=== PATIENT | female | born 1990 | race Caucasian/White ===

== ENCOUNTER 2021-04-10 05:50 | Inpatient (IN) | payer BC ==
[2021-04-10] MEDS ORDERED: Ondansetron 4 MG/2 ML SDV IVPUSH PRN (06:21)
[2021-04-10] MEDS ORDERED: Sodium Chloride 0.9% 10 ML Syringe FLUSH PRN (06:21)
[2021-04-10] MEDS ORDERED: Nalbuphine 10 MG/1 ML Vial IVPUSH PRN (06:21)
[2021-04-10] MEDS ORDERED: Lidocaine 1% 50 ML MDV INJECT ONE (06:21)
[2021-04-10] MEDS ORDERED: Oxytocin/Lactated Ringers 10 UNIT/1,000 ML BAG IV SCH (06:30)
[2021-04-10] MEDS: Labetalol 100 MG Tab PO SCH ×2 (09:37→19:59)
[2021-04-10] MEDS: Lactated Ringers 1,000 ML IV SCH ×4 (11:16→23:40)
[2021-04-10] MEDS: Sodium Chloride 0.9% 10 ML Syringe FLUSH SCH ×2 (11:44→22:08)
[2021-04-10] MEDS: Oxytocin/Lactated Ringers 10 UNIT/1,000 ML BAG IV SCH (12:03)
[2021-04-10] MEDS ORDERED: ePHEDrine 50 MG/ML SDV IVPUSH PRN (12:30)
[2021-04-10] MEDS ORDERED: diphenhydrAMINE 50 MG/ML SDV IVPUSH PRN (12:30)
[2021-04-10] MEDS: fentaNYL 100 MCG/2 ML SDV EPIDUR PRN ×2 (13:51→21:30)
[2021-04-10] MEDS: Bupivacaine/fentaNYL/NS 100 ML Bag EPIDUR PRN ×2 (13:51→20:51)
[2021-04-10] MEDS ORDERED: Lidocaine 2% with EPINEPHrine 1:200,000 20 ML SDV ONE (15:05)
[2021-04-10] MEDS ORDERED: Labetalol 100 MG Tab PO PRN (19:56)
[2021-04-10] MEDS ORDERED: Dexmedetomidine 200 MCG/2 ML SDV ONE (21:21)
[2021-04-11] MEDS ORDERED: Docusate Sodium 100 MG Cap PO PRN (03:16)
[2021-04-11] MEDS ORDERED: Benzocaine/Menthol 20%-0.5% Spray 78 GM Cannister TOP PRN (03:16)
[2021-04-11] MEDS ORDERED: Acetaminophen 325 MG Tab PO PRN (03:16)
[2021-04-11] MEDS: Oxytocin/Lactated Ringers 10 UNIT/1,000 ML BAG IV SCH (03:45)
[2021-04-11] MEDS: Ibuprofen 600 MG Tab PO PRN ×3 (04:19→19:55)
[2021-04-11] MEDS: Witch Hazel Medicated Pads 40/Jar TOP PRN (04:19)
[2021-04-11] MEDS: Prenatal Multivitamin with Calcium/Folic Acid/Iron Tab PO SCH (10:03)
[2021-04-12] MEDS: Ibuprofen 600 MG Tab PO PRN ×2 (03:28→09:45)
[2021-04-12] MEDS: Prenatal Multivitamin with Calcium/Folic Acid/Iron Tab PO SCH (09:44)
[2021-04-12] MEDS: Labetalol 100 MG Tab PO SCH ×2 (12:17→21:41)
[2021-04-13] MEDS: Ibuprofen 600 MG Tab PO PRN (03:08)
[2021-04-13] MEDS: Witch Hazel Medicated Pads 40/Jar TOP PRN (08:50)
[2021-04-13] MEDS ORDERED: Labetalol 100 MG Tab PO SCH (09:00)
== END 2021-04-13 12:55 | disposition home or self-care (01) | DRG 560 ==
LOC: JD.OBCHECK 05:50 → JD.OB 05:56 → JD.OBCHECK 06:22 → JD.OB 04-11 02:50 → OBSVTOIN 04-11 03:13
PROVIDERS: ADMIT Obstetrics & Gynecology; ATTEND Obstetrics & Gynecology
PROC: 10E0XZZ Delivery of Products of Conception, External Approach (ICD-10-PCS; principal; 2021-04-11)
PROC: 10907ZC Drainage of Amniotic Fluid, Therapeutic from Products of Conception, Via Natural or Artificial Opening (ICD-10-PCS; 2021-04-11)
PROC: 0KQM0ZZ Repair Perineum Muscle, Open Approach (ICD-10-PCS; 2021-04-11)
DX: O77.0 Labor and delivery complicated by meconium in amniotic fluid (principal); Z37.0 Single live birth; O70.1 Second degree perineal laceration during delivery; Z20.822 Contact with and (suspected) exposure to COVID-19; Z3A.39 39 weeks gestation of pregnancy
CPT/HCPCS: 01967; 36415; 51702; 59025; 59409; 80053; 82565; 82570; 83615; 84156; 84450; 84460; 84520; 84550; 85025; 85027; 86592; A9270-GY; J2590; J3010; J7120; U0002

== ENCOUNTER 2024-11-05 12:34 | Inpatient (IN) | payer BC ==
[2024-11-05] MEDS ORDERED: Nalbuphine 10 MG/1 ML Vial IVPUSH PRN (12:39)
[2024-11-05] MEDS ORDERED: Ondansetron 4 MG/2 ML SDV IVPUSH PRN (12:39)
[2024-11-05] MEDS ORDERED: Oxytocin/0.9 % Sodium Chloride 30 UNIT/500 ML BAG IV SCH ×2 (12:45)
[2024-11-05] MEDS ORDERED: Lactated Ringers 1,000 ML IV SCH (12:45)
[2024-11-05] MEDS ORDERED: Oxytocin 10 Units/1 ML SDV ONE (12:59)
[2024-11-05 13:02] LABS: BASOPHILS ABSOLUTE AUTO 0.0 K/mm3 (0.0-0.2); BASOPHILS PERCENT AUTO 0.4 % (0.0-1.0); EOSINOPHILS ABSOLUTE AUTO 0.0 K/mm3 (0.0-0.4); EOSINOPHILS PERCENT AUTO 0.4 % (0.0-6.0); IMMATURE GRAN ABSOLUTE AUTO 0.09 K/mm3 (0.00-0.05); IMMATURE GRAN PERCENT AUTO 0.8 % (0.0-0.4); LYMPHOCYTES ABSOLUTE AUTO 2.4 K/mm3 (1.0-4.8); LYMPHOCYTES PERCENT AUTO 20.9 % (24.0-44.0); MEAN PLATELET VOLUME 9.4 fl (9.4-12.3); MONOCYTES ABSOLUTE AUTO 0.8 K/mm3 (0.0-0.8); MONOCYTES PERCENT AUTO 7.5 % (0.0-8.0); NEUTROPHILS ABSOLUTE AUTO 7.9 K/mm3 (1.8-7.7); NEUTROPHILS PERCENT AUTO 70.0 % (41.0-71.0); NRBC ABSOLUTE 0.00 (0.00-0.02); NRBC PERCENT 0.0 % (0.0-0.2); PLATELET COUNT,PLT 273 K/mm3 (150-400); RED BLOOD CELL COUNT 3.91 M/mm3 (4.10-5.30); WHITE BLOOD CELL COUNT,WBC 11.27 K/mm3 (3.9-11.3)
[2024-11-05] MEDS: Oxytocin 10 Units/1 ML SDV IM ONE (13:27)
[2024-11-05 14:51] LABS: ALANINE AMINOTRANSFERASE,ALT 20.0 U/L (14-59); ASPARTATE AMNIOTRANSFERASE,AST 17.0 U/L (15-37); BLOOD UREA NITROGEN,BUN 14.0 mg/dL (7-18); CREATININE 0.7 mg/dL (0.55-1.02); EST CRCL DRUG DOSING (CG) 104.78 mL/min; ESTIMATED GFR 119.0 mL/min (>60)
[2024-11-05 14:53] LABS: LACTATE DEHYDROGENASE,LDH 188.0 U/L (81-234)
[2024-11-05 15:43] LABS: CREATININE,URINE RAND 62.3 mg/dL (30.0-125.0); PROTEIN CREATININE RATIO,URINE 223.1 mg/g (0-149); PROTEIN,URINE RANDOM 13.9 mg/dL (0.0-11.8)
[2024-11-05] MEDS: Witch Hazel Medicated Pads 40/Jar TOP PRN (16:29)
[2024-11-05] MEDS: Benzocaine/Menthol 20%-0.5% Spray 78 GM Cannister TOP PRN (16:29)
== END 2024-11-06 18:38 | disposition home or self-care (01) | DRG 560 ==
LOC: JD.OBCHECK 12:34 → JD.OB 12:35 → JD.OBCHECK 12:40 → JD.OB 12:41 → OBSVTOIN 12:50 → JD.OB 12:51
PROVIDERS: ADMIT Family Medicine; ATTEND Family Medicine
PROC: 10E0XZZ Delivery of Products of Conception, External Approach (ICD-10-PCS; principal; 2024-11-05)
DX: O10.92 Unspecified pre-existing hypertension complicating childbirth (principal); Z3A.38 38 weeks gestation of pregnancy; Z37.0 Single live birth; Z79.899 Other long term (current) drug therapy; O69.1XX0 Labor and delivery complicated by cord around neck, with compression, not applicable or unspecified
CPT/HCPCS: 36415; 51701; 59025; 59409; 82565; 82570; 83615; 84156; 84450; 84460; 84520; 84550; 85025; 86592; 86850; 86900; 86901; A9270-GY; J2590